=== PATIENT | male | born 1975 | race Caucasian/White ===

== ENCOUNTER 2017-02-18 23:55 | Emergency (ER) | payer SELFPAY ==
[~2017-02-18] VITALS: Ht 177.8 cm; Wt 82.0 kg
[2017-02-18 23:59] VITALS: BP 115/78; PULSE 86; RESP 16; TEMP 97.9; O2SAT 95
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
[2017-02-19] MEDS ORDERED: CEPHALEXIN MONOHYDRATE 500 MG CAP PO ONE (01:15)
[2017-02-19] MEDS ORDERED: DIPHTH/TETANUS/ACEL PERTUSSIS (BOOSTER) 0.5 ML VIAL/PFS IM ONE (01:15)
[2017-02-19] MEDS ORDERED: IBUPROFEN 400 MG TAB PO ONE (01:15)
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
== END 2017-02-19 02:45 | disposition left against medical advice (07) ==
LOC: NEPC 23:55
DX: S02.2XXA Fracture of nasal bones, initial encounter for closed fracture (principal); Z23 Encounter for immunization; Y04.2XXA Assault by strike against or bumped into by another person, initial encounter; Y92.481 Parking lot as the place of occurrence of the external cause; Y99.9 Unspecified external cause status; Y93.9 Activity, unspecified
CPT/HCPCS: 70450; 70486; 71101; 72125; 90471; 90715